=== PATIENT | female | born 1985 | race Caucasian/White ===

== ENCOUNTER 2022-12-16 15:16 | Emergency (ER) | payer OTHER, SELFPAY ==
--- NOTE | ~2022-12-16 | CT_ITS ---
EXAMINATION: CT ABDOMEN AND PELVIS WITH CONTRAST CLINICAL INFORMATION: Right lower quadrant and right CVA tenderness COMPARISON: None available. TECHNIQUE: Multidetector volumetric images were obtained from the superior aspect of the liver through the pubic symphysis following administration 85 mL of Omnipaque 350 intravenous contrast. Sagittal and coronal reformatted images were obtained on the technologist's workstation. Oral contrast: No This CT examination was performed using dose optimization techniques as appropriate, variously including the following: *Automated exposure control *Adjustment of mA and/or kV according to patient size (this includes techniques or standardized protocols for targeted exams where dose is matched to indication/reason for exam; i.e. extremities or head) *Use of iterative reconstruction technique DLP: 534 mGy-cm FINDINGS: LUNG BASES: The visualized lung bases are unremarkable. LIVER, GALLBLADDER, AND BILIARY TREE: The liver is normal in size, shape, and attenuation. No focal hepatic lesion or biliary ductal dilatation is present. Status post cholecystectomy PANCREAS: Unremarkable. SPLEEN: Unremarkable. ADRENAL GLANDS: Unremarkable. KIDNEYS AND URETERS: Delayed nephrogram on the right. Hydronephrosis on the right. Dilated right ureter leads up to a 4 mm calculus at the UVJ. Restaging diffuse small areas of low density within the left kidney of uncertain etiology. May be evolving cysts. BLADDER: The bladder is decompressed GASTROINTESTINAL TRACT: The small and large bowel are unremarkable. The appendix is unremarkable. ABDOMINAL WALL: No significant hernia is appreciated. LYMPH NODES: Normal. VASCULAR: Unremarkable. PELVIC VISCERA: Cystic change associated with the right adnexa. 3.8 x 2.7 cm OSSEOUS STRUCTURES: Unremarkable. CT/CT abdomen pelvis w IV con IMPRESSION: Mild hydronephrosis on the right caused by a 4 mm calculus at the right UVJ. Other findings are as noted above. Fleischner guidelines were followed.
--- NOTE | 2022-12-16 15:41 | ED_ITS ---
HPI - General Adult General Chief complaint: Abdominal Pain Stated complaint: abdominal pain Time Seen by Provider: 12/16/22 16:13 Source: patient Mode of arrival: ambulatory Limitations: no limitations History of Present Illness HPI narrative: 37-year-old female who presents emergency department for evaluation of periumbilical pain and right lower quadrant pain. The pain started suddenly approximately 1-1/2 hours prior to coming to the emergency department. Patient points to her right lower quadrant when asked to localize the pain. She states the pain is a sharp pain which waxes and wanes in intensity and is 10/10 at its worst. She had associated nausea and has several episodes of vomiting. She states she also had diarrhea which she describes as brown watery stool with no blood in the stool. The patient states that her last menstrual period started 12/13/2022 -3 days prior to evaluation, she describes her bleeding as usual amount which is moderate. this menstrual period was 10 days late and her menstrual periods have been irregular recently. She states that she has a history and she knows that she is anemic because she is feeling very weak, tired and if he, she was going to schedule appointment with a primary care doctor. Related Data Previous Rx's Medication Instructions Recorded oxycodone 5 mg tablet 5 mg PO Q4H PRN pain #14 tabs 12/16/22 tamsulosin 0.4 mg capsule (Flomax) 0.4 mg PO BEDTIME #14 caps 12/16/22 Allergies Allergy/AdvReac Type Severity Reaction Status Date / Time No Known Allergies Allergy Verified 12/16/22 15:41 Review of Systems 2 Review of Systems: Yes all other systems are reviewed and are negative [facility] Past Medical History [facility] Narrative: Past medical history: Asthma, GERD, hiatal hernia, anemia. : Cholecystectomy. Social history: She denies tobacco, alcohol and drug use. Social History Social History Advance Directives: No Advance Directives Information Provided: No Physical Exam ED Vital Signs: Vital Signs - 24 hr 12/16/22 15:42 12/16/22 18:00 Temperature 100.7 F H 98.5 F Pulse Rate 87 81 Respiratory Rate 16 13 Blood Pressure 136/66 117/57 L Pulse Oximetry 100 100 Oxygen Delivery Method Room Air Room Air BMI result Body Mass Index 31.6 Vital signs revealed a low-grade fever of 100.7 degrees F otherwise unremarkable. Exam: General: Awake, alert , appears to be in distress secondary to her abdominal pain Head: Normocephalic, atraumatic EENT: PERRL, Lids normal, sclera normal, conjunctiva normal, nose normal , ears normal, throat without erythema or exudates Neck: Supple, no adenopathy, trachea midline and nontender Lung: breath sounds symmetric, no wheezing, rales or rhonchi Chest: symmetric movement, nontender Heart: regular rate and rhythm, normal S1, S2 no murmurs or rubs Abdomen: soft, moderate right lower quadrant tenderness, nondistended, normal bowel sounds Back: no vertebral tenderness, moderate right CVAT Extremities: no deformities, moves all extremities symmetrically Skin: no rashes, no lesion, normal color and warmth Neuro: Awake, alert, oriented, normal speech, cranial nerves intact, moves all extremities symmetrically Psych: Pleasant, cooperative Course Course Course Narrative: This is a rapid medical exam: Additional HPI, ROS, PE not included below will be deferred to primary provider. Patient is a 37-year-old female presenting to the emergency department with abdominal pain, nausea, vomiting, right lower quadrant and umbilical pain since earlier today, approx 1.5 hrs prior to arrival. Initially thought pain was related to menstrual cramps. Right CVA tenderness and right lower quadrant tenderness, temp 100.7. Plan: UA, labs, CT abdomen pelvis 16:09 Critical hgb of 5.9 received from lab, relief charge nurse notified and patient brought into main ED Medications Administered Discontinued Medications Generic Name Dose Route Start Last Admin Trade Name Freq PRN Reason Stop Dose Admin Sodium Chloride 1,000 mls @ 999 mls/hr 12/16/22 16:32 12/16/22 16:44 Ns IV 12/16/22 17:32 999 mls/hr .Q1H1M STA Administration Iohexol 85 ml 12/16/22 17:14 12/16/22 17:15 Iohexol 350 Mg/Ml 100 Ml Infus..Btl IV 12/16/22 17:15 85 ml ONCE ONE Administration Iohexol 100 ml 12/16/22 17:44 12/16/22 17:44 Iohexol 350 Mg/Ml 100 Ml Infus..Btl IV 12/16/22 17:45 85 ml ONCE ONE Administration Morphine Sulfate 4 mg 12/16/22 16:32 12/16/22 17:28 Morphine Sulfate 4 Mg/Ml Cartridge IVPUSH 12/16/22 16:33 Not Given ONCE STA Protocol Ondansetron HCl 4 mg 12/16/22 16:32 12/16/22 17:28 Ondansetron Hcl 4 Mg/2 Ml Vial IVPUSH 12/16/22 16:33 Not Given ONCE ONE Medical Decision Making Medical Decision Making MDM Narrative: 37-year-old female history of asthma, GERD, hiatal hernia, anemia, cholecystectomy who presents emergency department for evaluation of sudden onset of right lower abdominal pain which started 1.5 hours prior to coming to emergency department. Patient states that her menstrual periods have been irregular and she was 10 days late on her menstrual period which started 12/13/2022 and she is currently menstruating. Vital signs were normal except for low-grade fever of 100.7 degrees F orally. Patient's exam did reveal right lower quadrant tenderness and right-sided CVA tenderness. Following evaluation was ordered: CBC, CMP, lipase, urinalysis, quantitative beta-hCG, lipase, stool for occult blood, type and screen , iron profile. 1658: Laboratory evaluation did reveal significant anemia with an H&H of 5.9 and 23.8 with an MCV of 60.9 - hemoccult stool was negative. Given the severe anemia, I ordered transfusion with RBCs x2 units. 1919: The patient's CT scan did reveal a 4 mm right UVJ stone with hydronephrosis this explains her pain. patient was started on Flomax and advised to take Tylenol and oxycodone for pain, she was advised to avoid NSAIDs and aspirin. she will be referred to our on-call urologist. The patient refused blood transfusions and I did discuss the possibility of stroke, myocardial infarction, syncope and as a consequence of low hematocrit. The patient understood this discussion and She decided to leave against medical advice without getting blood transfusions. Patient was advised to discuss iron supplements with her pharmacist and to get on and iron supplement that she takes 3 times a day for the next 3 months. she needs to start this tomorrow morning. She was advised also to contact her primary care doctor for follow-up As soon as possible for re-evaluation Differential Diagnosis Differential Diagnoses: The differential diagnosis associated with the presentation includes differential diagnosis includes was not limited to acute appendicitis, pancreatitis, ureteral stone, kidney stone, urinary tract infection, pyelonephritis, anemia, electrolyte abnormality Lab Data MDM Lab Attestation statement: I reviewed the patient's lab results. 12/16/22 15:53 12/16/22 15:53 Labs: Lab Results 12/16/22 12/16/22 12/16/22 Range/Units 15:53 16:56 16:58 WBC 8.3 (4.8-10.8) X10*3/uL RBC 3.91 L (4.20-5.50) X10*6/uL Hgb 5.9 L* (12.0-16.0) g/dl Hct 23.8 L (37.0-47.0) % MCV 60.9 L (80.0-98.0) fL MCH 15.1 L (27.0-33.0) pg MCHC 24.8 L (31.0-35.0) g/dl RDW 20.1 H (11.0-16.0) % Plt Count 449 H (160-400) X10*3/uL MPV 10.1 (9.4-12.3) fL Immature Gran % (Auto) 0.5 H (0.0-0.4) % Neut % (Auto) 66.2 (45-73) % Lymph % (Auto) 26.7 (20-40) % Laurens % (Auto) 4.8 (2-11) % Eos % (Auto) 1.2 (0-4) % Baso % (Auto) 0.6 (0-2) % Lymph # (Auto) 2.2 (1.2-4.9) X10*3/uL Laurens # (Auto) 0.4 (0.1-1.2) X10*3/uL Eos # (Auto) 0.1 (0.0-0.4) X10*3/uL Baso # (Auto) 0.1 (0.0-0.2) X10*3/uL Abs Immat Gran (auto) 0.04 H (0.00-0.03) X10*3/uL Absolute Neuts (auto) 5.5 (2.0-8.3) x10*3/uL Absolute Nucleated RBC 0.000 (0.0-0.012) X10*3/uL Nucleated RBC % (auto) 0.0 (0.0-0.2) /100WBC Sodium 141 (135-145) mmol/L Potassium 4.1 (3.3-5.1) mmol/L Chloride 111 H (96-108) mmol/L Carbon Dioxide 26 (22-29) mmol/L Anion Gap 8 L (12-20) BUN 12 (9-16) mg/dL Creatinine 0.74 (0.5-1.4) mg/dL Estim Creat Clear Calc 96.9 Estimated GFR > 60 Random Glucose 110 (60-115) mg/dL Calcium 9.5 (8.4-10.2) mg/dL Iron 13 L (30-160) mcg/dL TIBC 398 (228-428) mcg/dL % Saturation 3 L (15-50) % Unsat Iron Binding 385 ug/dL Total Bilirubin 0.3 (0.0-1.0) mg/dL AST 17 (5-31) U/L ALT 10 (0-31) U/L Alkaline Phosphatase 52 (39-117) U/L Total Protein 7.9 (6.5-8.0) g/dL Albumin 4.0 (3.5-5.0) g/dL Lipase 25 (8-78) U/L Beta HCG, Quant < 2 mIU/mL Urine Color Urine Appearance Urine pH (5.0-9.0) Ur Specific Phenix (1.005-1.025) Urine Protein (Neg-Trace) mg/dL Urine Glucose (UA) (Negative) mg/dL Urine Ketones (Negative) mg/dL Urine Blood (Negative) Urine Nitrite (Negative) Ur Leukocyte Esterase (Negative) Urine RBC (0-2) /HPF Urine WBC (0-5) /HPF Ur Squamous Epith Cells (0-2) /HPF Urine Bacteria (None Seen) Hyaline Casts (0-2) /LPF Stool Occult Blood NEGATIVE (NEGATIVE) Blood Type O Positive Antibody Screen NEGATIVE Crossmatch See Detail 12/16/22 Range/Units 16:59 WBC (4.8-10.8) X10*3/uL RBC (4.20-5.50) X10*6/uL Hgb (12.0-16.0) g/dl Hct (37.0-47.0) % MCV (80.0-98.0) fL MCH (27.0-33.0) pg MCHC (31.0-35.0) g/dl RDW (11.0-16.0) % Plt Count (160-400) X10*3/uL MPV (9.4-12.3) fL Immature Gran % (Auto) (0.0-0.4) % Neut % (Auto) (45-73) % Lymph % (Auto) (20-40) % Laurens % (Auto) (2-11) % Eos % (Auto) (0-4) % Baso % (Auto) (0-2) % Lymph # (Auto) (1.2-4.9) X10*3/uL Laurens # (Auto) (0.1-1.2) X10*3/uL Eos # (Auto) (0.0-0.4) X10*3/uL Baso # (Auto) (0.0-0.2) X10*3/uL Abs Immat Gran (auto) (0.00-0.03) X10*3/uL Absolute Neuts (auto) (2.0-8.3) x10*3/uL Absolute Nucleated RBC (0.0-0.012) X10*3/uL Nucleated RBC % (auto) (0.0-0.2) /100WBC Sodium (135-145) mmol/L Potassium (3.3-5.1) mmol/L Chloride (96-108) mmol/L Carbon Dioxide (22-29) mmol/L Anion Gap (12-20) BUN (9-16) mg/dL Creatinine (0.5-1.4) mg/dL Estim Creat Clear Calc Estimated GFR Random Glucose (60-115) mg/dL Calcium (8.4-10.2) mg/dL Iron (30-160) mcg/dL TIBC (228-428) mcg/dL % Saturation (15-50) % Unsat Iron Binding ug/dL Total Bilirubin (0.0-1.0) mg/dL AST (5-31) U/L ALT (0-31) U/L Alkaline Phosphatase (39-117) U/L Total Protein (6.5-8.0) g/dL Albumin (3.5-5.0) g/dL Lipase (8-78) U/L Beta HCG, Quant mIU/mL Urine Color Yellow Urine Appearance Cloudy Urine pH 8.0 (5.0-9.0) Ur Specific Phenix 1.025 (1.005-1.025) Urine Protein 30 (1+) H (Neg-Trace) mg/dL Urine Glucose (UA) Negative (Negative) mg/dL Urine Ketones Trace (Negative) mg/dL Urine Blood Large (3+) H (Negative) Urine Nitrite Negative (Negative) Ur Leukocyte Esterase Small (1+) H (Negative) Urine RBC >20 H (0-2) /HPF Urine WBC 11-20 H (0-5) /HPF Ur Squamous Epith Cells 11-20 (0-2) /HPF Urine Bacteria 3+ (None Seen) Hyaline Casts 0-2 (0-2) /LPF Stool Occult Blood (NEGATIVE) Blood Type Antibody Screen Crossmatch Independent Interpretation I performed an independent interpretation of an: CT Scan Interpretation: CT abdomen pelvis w IV con IMPRESSION: Mild hydronephrosis on the right caused by a 4 mm calculus at the right UVJ. Other findings are as noted above. Fleischner guidelines were followed. Dictated By: Yair Danielle MD Discharge Plan Discharge Clinical Impression: Calculus of distal right ureter, Left against medical advice Iron (Fe) deficiency anemia Qualifiers: Iron deficiency anemia type: unspecified iron deficiency Qualified Code(s): D 50.9 - Iron deficiency anemia, unspecified Patient Disposition: Home, Self-Care Instructions: Iron Rich Diet (ED), Iron Deficiency Anemia (ED), How to Strain Your Urine (ED), Ureteral Stones (ED) Additional Instructions: your right-sided pain was caused by a 4 mm kidney stone that left your kidney and is now in the urine ( the tube that connects your kidney to the bladder ). The stone is right where the tube connects to her bladder so you have almost passed it. Take Flomax (tamsulosin) 0.4 mg once a day for the next 2 weeks or until you pass the stone. This medication helps relax the ureter and may help you pass the stone sooner. Take Tylenol (acetaminophen) 500 mg pills, 2 pills every 4-6 hours as needed for pain. For pain not relieved by Tylenol take oxycodone 5 mg pills, 1 pill every 4 hours as needed for pain. Do not drive or work while taking this medication since they can cause sleepiness. Oxycodone is a narcotic medication that can be addicting. If you are concerned about addiction you can ask the pharmacist for less pills or do not get this prescription filled. You have severe iron deficient anemia with a hemoglobin of 5.9 and hematocrit of 23.8. You have half of the number of red blood cells that you need to get oxygen to your body. Your red blood cell count is dangerously low and a low red blood cell count can lead to stroke, heart attack, passing out and . I wanted to give you 2 units of packed red blood cells here in the emergency department but you refused and You are leaving against medical advice. Despite leaving against medical advice, if you change your mind, come back to the emergency department and we will transfuse you. I want you to talk to your pharmacy tomorrow and start an iron supplement that is gentle on the stomach,you need to take this iron supplement 3 times day for 3 months. Follow-up with your doctor in 1 days. Please return to the emergency department if your symptoms get worse or if you develop any symptoms that are concerning to you. Prescriptions: New oxycodone 5 mg tablet 5 mg PO Q4H PRN (Reason: pain) Qty: 14 0RF Rx Instructions: Patient may request partial fill; Partial Fill upon patient request. tamsulosin [Flomax] 0.4 mg capsule 0.4 mg PO BEDTIME Qty: 14 0RF Stand Alone Forms: Against Medical Advice
[2022-12-16 15:42] VITALS: BP 136/66; PULSE 87; RESP 16; TEMP 38.2; O2SAT 100; BMI 31.6
[2022-12-16 16:00] LABS: MANUAL DIFF FLAG NO
[2022-12-16 16:05] LABS: Basophils Absolute Auto 0.1 X10*3/uL (0.0-0.2); Basophils Percent Auto 0.6 % (0-2); Eosinophils Absolute Auto 0.1 X10*3/uL (0.0-0.4); Eosinophils Percent Auto 1.2 % (0-4); Hematocrit 23.8 % (37.0-47.0); Imm Gran Abs Auto 0.04 X10*3/uL (0.00-0.03); Imm Gran Pct Auto 0.5 % (0.0-0.4); Lymphocytes Absolute Auto 2.2 X10*3/uL (1.2-4.9); Lymphocytes Percent Auto 26.7 % (20-40); Mean Corpuscular HGB Conc 24.8 g/dl (31.0-35.0); Mean Corpuscular Hemoglobin 15.1 pg (27.0-33.0); Mean Platelet Volume 10.1 fL (9.4-12.3); Monocytes Absolute Auto 0.4 X10*3/uL (0.1-1.2); Monocytes Percent Auto 4.8 % (2-11); Neutrophils Absolute Auto 5.5 x10*3/uL (2.0-8.3); Neutrophils Percent Auto 66.2 % (45-73); Platelet Count 449 X10*3/uL (160-400); Red Blood Count 3.91 X10*6/uL (4.20-5.50); Red Cell Distribution Width 20.1 % (11.0-16.0); White Blood Count 8.3 X10*3/uL (4.8-10.8)
[2022-12-16 16:12] LABS: Hemoglobin 5.9 g/dl (12.0-16.0); Mean Corpuscular Volume 60.9 fL (80.0-98.0)
[2022-12-16 16:25] LABS: Alanine Aminotransferase 10 U/L (0-31); Alkaline Phosphatase 52 U/L (39-117); Anion Gap 8 (12-20); Aspartate Amino Transferase 17 U/L (5-31); Bilirubin Total 0.3 mg/dL (0.0-1.0); Blood Urea Nitrogen 12 mg/dL (9-16); Calcium 9.5 mg/dL (8.4-10.2); Carbon Dioxide 26 mmol/L (22-29); Chloride 111 mmol/L (96-108); Creatinine Clr Calc Pharmacy 96.9; Estimated Glomerular Filt Rate > 60; Glucose Random 110 mg/dL (60-115); Lipase 25 U/L (8-78); Potassium 4.1 mmol/L (3.3-5.1); Sodium 141 mmol/L (135-145); Total Protein 7.9 g/dL (6.5-8.0)
[2022-12-16 16:26] LABS: HCG Quantitative < 2 mIU/mL
--- NOTE | 2022-12-16 16:33 | ECG_ITS ---
Test Reason : ABDOMINAL PAIN Blood Pressure : / mmHG Vent. Rate : 077 BPM Atrial Rate : 077 BPM P-R Int : 140 ms QRS Dur : 072 ms QT Int : 398 ms P-R-T Axes : 026 036 028 degrees QTc Int : 450 ms Normal sinus rhythm with sinus arrhythmia Normal ECG No previous ECGs available Referred By: Keshawn Marquis Electronically Signed By:RENU HATFIELD
[2022-12-16] MEDS: 0.9 % Sodium Chloride 1,000 ML 999 ML IV (16:44)
[2022-12-16 17:09] LABS: Appearance Urine Cloudy; Color Urine Yellow; Glucose Urine UA Negative (Negative); Leukocyte Esterase Urine Small (1+) (Negative); Nitrite Urine Negative (Negative); Specific Gravity - Urine 1.025 (1.005-1.025); UMIC TRIGGER UACC YES; Urine Blood Large (3+) (Negative); Urine Ketones Trace mg/dL (Negative); Urine Protein 30 (1+) mg/dL (Neg-Trace)
[2022-12-16 17:10] LABS: OBS Int Ctl Valid YES; OBS1 NEGATIVE (NEGATIVE)
[2022-12-16 17:11] LABS: Bacteria Urine 3+ (None Seen); Hyaline Casts Urine 0-2 /LPF (0-2); RBC Urine >20 /HPF (0-2); UACC Culture Trigger YES
[2022-12-16 17:14] LABS: Iron 13 mcg/dL (30-160); Percent Iron Saturation 3 % (15-50); Total Iron Binding Capacity 398 mcg/dL (228-428); Unsaturated Iron Binding 385 ug/dL
[2022-12-16] MEDS: iohexoL 350 MG/ML 100 ML INFUS..BTL 85 ML IV (17:15)
--- NOTE | 2022-12-16 17:29 | PC.NURSE ---
pt brought back from waiting room when low Hgb resulted from lab. AOx4, ambulatory while in room pt was nauseous and reported severe pain in RLQ. Pt was hardly abl to answer questions. Pt then reported that pain moved away from RLQ and she felt strong pressure in urinary tract Pt urinated in commode, an attempt was made to retreive any stone that may have passed byt nothing was seen. Pt now reports that her symptoms have resolved, denies pain, N/V. This nurse explained that her Hgb is still very low requiring a transfusion. Pt denies symptoms
[2022-12-16] MEDS: iohexoL 350 MG/ML 100 ML INFUS..BTL IV (17:44)
[2022-12-16 18:00] VITALS: BP 117/57; PULSE 81; RESP 13; TEMP 36.9; O2SAT 100
== END 2022-12-16 19:42 | disposition home or self-care (01) ==
PROVIDERS: Registered Nurse Emergency; Emergency Provider Emergency Medicine Emergency Medical Services
DX: N20.1 Calculus of ureter (principal); D50.9 Iron deficiency anemia, unspecified; R10.31 Right lower quadrant pain; I49.8 Other specified cardiac arrhythmias; Z79.899 Other long term (current) drug therapy
CPT/HCPCS: 36415; 74177; 80053; 81001; 82272; 83540; 83690; 84702; 85025; 86850; 86900; 86901; 86923; 87086; 93005; 99284; Q9967

== ENCOUNTER 2023-07-07 08:47 | Emergency (ER) | payer OTHER, SELFPAY ==
[2023-07-07 09:21] VITALS: BP 119/70; PULSE 70; RESP 18; TEMP 36.4; O2SAT 99; BMI 31.5
[2023-07-07 09:57] LABS: MANUAL DIFF FLAG NO
[2023-07-07 10:01] LABS: Basophils Percent Auto 0.6 % (0-2); Eosinophils Absolute Auto 0.1 X10*3/uL (0.0-0.4); Eosinophils Percent Auto 1.5 % (0-4); Hematocrit 25.7 % (37.0-47.0); Imm Gran Abs Auto 0.01 X10*3/uL (0.00-0.03); Imm Gran Pct Auto 0.2 % (0.0-0.4); Lymphocytes Absolute Auto 1.5 X10*3/uL (1.2-4.9); Lymphocytes Percent Auto 23.7 % (20-40); Mean Corpuscular HGB Conc 26.1 g/dl (31.0-35.0); Mean Corpuscular Hemoglobin 16.8 pg (27.0-33.0); Mean Platelet Volume 10.1 fL (9.4-12.3); Monocytes Absolute Auto 0.3 X10*3/uL (0.1-1.2); Neutrophils Absolute Auto 4.3 x10*3/uL (2.0-8.3); Platelet Count 310 X10*3/uL (160-400); Red Blood Count 3.99 X10*6/uL (4.20-5.50); Red Cell Distribution Width 18.7 % (11.0-16.0); White Blood Count 6.2 X10*3/uL (4.8-10.8)
[2023-07-07 10:10] LABS: Mean Corpuscular Volume 64.4 fL (80.0-98.0)
[2023-07-07 10:12] LABS: Hemoglobin 6.7 g/dl (12.0-16.0)
[2023-07-07 10:24] LABS: Alanine Aminotransferase 12 U/L (0-31); Albumin Level 3.8 g/dL (3.5-5.0); Alkaline Phosphatase 61 U/L (39-117); Anion Gap 10 (12-20); Aspartate Amino Transferase 18 U/L (5-31); Bilirubin Total 0.2 mg/dL (0.0-1.0); Blood Urea Nitrogen 13 mg/dL (9-16); Calcium 8.8 mg/dL (8.4-10.2); Carbon Dioxide 25 mmol/L (22-29); Chloride 110 mmol/L (96-108); Creatinine Clr Calc Pharmacy 110.9; Estimated Glomerular Filt Rate > 60; Glucose Random 87 mg/dL (60-115); Potassium 4.5 mmol/L (3.3-5.1); Sodium 140 mmol/L (135-145); Total Protein 7.7 g/dL (6.5-8.0)
[2023-07-07 10:34] LABS: HCG Quantitative < 2 mIU/mL
--- NOTE | 2023-07-07 13:17 | ED_ITS ---
HPI - Recheck/Abnormal Lab/Rx General Chief Complaint: Recheck/Abnormal Lab/Rx Stated Complaint: Blood Transfusion Sent by PCP Related Data Previous Rx's ?Medication ?Instructions ?Recorded oxycodone 5 mg tablet 5 mg PO Q4H PRN pain #14 tabs 12/16/22 tamsulosin 0.4 mg capsule (Flomax) 0.4 mg PO BEDTIME #14 caps 12/16/22 Allergies Allergy/AdvReac Type Severity Reaction Status Date / Time No Known Allergies Allergy Verified 07/07/23 09:25 [facility] Social History Social History Advance Directives: No Advance Directives Information Provided: No Physical Exam 2 Vital Signs: Vital Signs: Last Vital Signs Temp 97.5 F 07/07/23 09:21 Pulse 70 07/07/23 09:21 Resp 18 07/07/23 09:21 BP 119/70 07/07/23 09:21 Pulse Ox 99 07/07/23 09:21 O2 Del Method Room Air 07/07/23 09:21 BMI result Body Mass Index 31.5 Course Course Course Narrative: RME:?Patient received a call from her primary care office after having blood work last which showed low H&H. She was advised to come to the ED to get a blood transfusion. endorses history of anemia. denies headache, fatigue, chest pain, sob. labs ordered. Full HPI, ROS and PE to be performed by the primary ED provider. 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 Her CBC shows H&H of 6.7/25.7 > she will require blood transfusion once she gets back to an ED bed. I had an in-depth discussion with the patient regarding the need for blood transfusion. I discussed the risks of leaving the emergency department without receiving this blood transfusion including but not limited to infection, worsening anemia, stroke, and even . She has verbalized understanding of these risks and is choosing to leave the ED against medical advice. AMA paperwork signed by patient. Medical Decision Making Lab Data 07/07/23 09:48 07/07/23 09:48 Labs: Lab Results 07/07/23 Range/Units 09:48 WBC 6.2 (4.8-10.8) X10*3/uL RBC 3.99 L (4.20-5.50) X10*6/uL Hgb 6.7 L* (12.0-16.0) g/dl Hct 25.7 L (37.0-47.0) % MCV 64.4 L (80.0-98.0) fL MCH 16.8 L (27.0-33.0) pg MCHC 26.1 L (31.0-35.0) g/dl RDW 18.7 H (11.0-16.0) % Plt Count 310 D (160-400) X10*3/uL MPV 10.1 (9.4-12.3) fL Immature Gran % (Auto) 0.2 (0.0-0.4) % Neut % (Auto) 69.0 (45-73) % Lymph % (Auto) 23.7 (20-40) % Turner % (Auto) 5.0 (2-11) % Eos % (Auto) 1.5 (0-4) % Baso % (Auto) 0.6 (0-2) % Lymph # (Auto) 1.5 (1.2-4.9) X10*3/uL Turner # (Auto) 0.3 (0.1-1.2) X10*3/uL Eos # (Auto) 0.1 (0.0-0.4) X10*3/uL Baso # (Auto) 0.0 (0.0-0.2) X10*3/uL Abs Immat Gran (auto) 0.01 (0.00-0.03) X10*3/uL Absolute Neuts (auto) 4.3 (2.0-8.3) x10*3/uL Absolute Nucleated RBC 0.000 (0.0-0.012) X10*3/uL Nucleated RBC % (auto) 0.0 (0.0-0.2) /100WBC Sodium 140 (135-145) mmol/L Potassium 4.5 (3.3-5.1) mmol/L Chloride 110 H (96-108) mmol/L Carbon Dioxide 25 (22-29) mmol/L Anion Gap 10 L (12-20) BUN 13 (9-16) mg/dL Creatinine 0.64 (0.5-1.4) mg/dL Estim Creat Clear Calc 110.9 Estimated GFR > 60 Random Glucose 87 (60-115) mg/dL Calcium 8.8 D (8.4-10.2) mg/dL Total Bilirubin 0.2 (0.0-1.0) mg/dL AST 18 (5-31) U/L ALT 12 (0-31) U/L Alkaline Phosphatase 61 (39-117) U/L Total Protein 7.7 (6.5-8.0) g/dL Albumin 3.8 (3.5-5.0) g/dL Beta HCG, Quant < 2 mIU/mL Blood Type O Positive Antibody Screen NEGATIVE Discharge Plan Discharge Clinical Impression: Anemia Patient Disposition: Left Against Medical Advice Instructions: Anemia (ED) Prescriptions: No Action oxycodone 5 mg tablet 5 mg PO Q4H PRN (Reason: pain) Qty: 14 0RF Rx Instructions: Patient may request partial fill; Partial Fill upon patient request. tamsulosin [Flomax] 0.4 mg capsule 0.4 mg PO BEDTIME Qty: 14 0RF Stand Alone Forms: Against Medical Advice Print Language: Palestinian
== END 2023-07-07 13:20 | disposition left against medical advice (07) ==
PROVIDERS: Student in an Organized Health Care Education/Training Program; Emergency Provider Emergency Medicine; PCP Internal Medicine
DX: D64.9 Anemia, unspecified (principal); R79.89 Other specified abnormal findings of blood chemistry; Z79.899 Other long term (current) drug therapy
CPT/HCPCS: 36415; 80053; 84702; 85025; 86850; 86900; 86901; 99283